=== PATIENT | male | born 1940 | race Caucasian/White ===

== ENCOUNTER 2019-03-09 06:35 | Inpatient (IN) ==
[2019-03-09] MEDS ORDERED: Ipratropium/Albuterol Neb 3 ML IH ONE (07:08)
[2019-03-09] MEDS ORDERED: 0.9 % Sodium Chloride 1,000 ML IVC ONE (07:08)
[2019-03-09] MEDS ORDERED: Aspirin 81 MG TAB.CHEW PO STA (07:37)
[2019-03-09 07:52] LABS: Basophils # 0.1 K/mcL (0.0-0.2); Basophils % 0.9 %; Eosinophils # 0.2 K/mcL (0.0-0.6); Eosinophils % 2.3 %; Hematocrit 32.2 % (37.5-50.1); Hemoglobin 10.6 g/dL (12.9-16.9); Immature Granulocytes % 0.6 % (0-4); Lymphocytes # 1.2 K/mcL (0.6-4.6); Lymphocytes % 14.4 %; Mean Corpuscular HGB Conc 32.9 g/dL (31.6-35.5); Mean Corpuscular Hemoglobin 30.7 pg (28.0-33.3); Mean Corpuscular Volume 93.3 fL (83.0-100.0); Mean Platelet Volume 11.5 fL (9.4-12.4); Monocytes # 0.7 K/mcL (0.0-1.3); Neutrophils # 6.4 K/mcL (1.6-8.9); Platelet Count 207 K/mcL (140-400); Red Blood Count 3.45 M/mcL (4.19-5.50); Red Cell Distribution Width 16.4 % (11.5-14.5); Segmented Neutrophils % 73.8 %; White Blood Count 8.6 K/mcL (4.3-11.1)
[2019-03-09 08:00] LABS: INR 1.1; Prothrombin Time 12.1 Seconds (9.4-12.1)
[2019-03-09] MEDS ORDERED: Isovue-370 500 ML BOTTLE IVP ONE (08:00)
[2019-03-09 08:25] LABS: BUN/Creatinine Ratio 20 (6-26); Blood Urea Nitrogen 28 mg/dL (8-23); Calcium 9.2 mg/dL (8.6-10.3); Carbon Dioxide 25 mEq/L (23-29); Chloride 108 mEq/L (98-107); Glucose 103 mg/dL (70-105); Osmolality,Calculated 300 (280-300); Potassium 4.4 mEq/L (3.5-5.1); Sodium 142 mEq/L (136-145); Troponin I 0.06 ng/mL (< 0.04); eGFR For African Americans > 60 (> 60); eGFR For Non-African Americans 50 (> 60)
[2019-03-09 08:48] LABS: ABG Base Excess -4 mEq/L (-2 to 3); ABG HCO3 20 mEq/L (21-27); ABG Oxygen Saturation 93 % (95-98); ABG PCO2 33 mmHg (35-45); ABG PO2 66 mmHg (85-104); ABG TCO2 21 mEq/L (20-26)
[2019-03-09] MEDS ORDERED: Azithromycin 500 MG in 0.9 % Sodium Chloride 250 ML IVPB ONE (08:55)
[2019-03-09] MEDS ORDERED: cefTRIAXone 1,000 MG in 0.9 % Sodium Chloride Mini Bag 100 ML IVPB ONE (08:55)
[2019-03-09] MEDS ORDERED: Furosemide 40 MG/4 ML VIAL IVP ONE (09:31)
[2019-03-09] MEDS ORDERED: Nitroglycerin 0.4 MG TAB.SUBL SL ONE (09:55)
[2019-03-09] MEDS: Nitroglycerin 25 MG/250 ML INFUS..BTL IVC SCH (10:08)
[2019-03-09] MEDS ORDERED: *HR* Heparin 5,000 UNIT/ML VIAL IVP PRN ×2 (10:19)
[2019-03-09] MEDS ORDERED: *HR* Heparin 5,000 UNIT/ML VIAL IVP ONE (10:19)
[2019-03-09] MEDS ORDERED: Naloxone 0.4 MG/ML INJ IVP PRN (10:25)
[2019-03-09] MEDS ORDERED: Ipratropium/Albuterol Neb 3 ML IH PRN (10:46)
[2019-03-09] MEDS: Heparin 25,000 UNIT/250 ML D5W 25,000 UNIT/250 ML IV.SOLN IVC SCH (11:44)
[2019-03-09] MEDS: *HR* Ticagrelor 90 MG TABLET PO SCH ×2 (12:35→20:06)
[2019-03-09 14:27] LABS: Hematocrit 30.8 % (37.5-50.1); Hemoglobin 10.1 g/dL (12.9-16.9); Mean Corpuscular HGB Conc 32.8 g/dL (31.6-35.5); Mean Corpuscular Hemoglobin 30.4 pg (28.0-33.3); Mean Corpuscular Volume 92.8 fL (83.0-100.0); Mean Platelet Volume 11.8 fL (9.4-12.4); Platelet Count 202 K/mcL (140-400); Red Blood Count 3.32 M/mcL (4.19-5.50); Red Cell Distribution Width 16.4 % (11.5-14.5); White Blood Count 11.1 K/mcL (4.3-11.1)
[2019-03-09 14:32] LABS: INR 1.2; Prothrombin Time 13.4 Seconds (9.4-12.1)
[2019-03-09] MEDS: Metoprolol XL (24 HR) Succ 25 MG TAB.ER.24H PO SCH (15:52)
[2019-03-09] MEDS: Furosemide 20 MG/2 ML VIAL IVP SCH (20:06)
[2019-03-09] MEDS ORDERED: Furosemide 40 MG in 0.9 % Sodium Chloride 50 ML IV SCH (21:00)
[2019-03-10 01:04] LABS: Basophils # 0.1 K/mcL (0.0-0.2); Eosinophils # 0.2 K/mcL (0.0-0.6); Hematocrit 30.3 % (37.5-50.1); Hemoglobin 10.2 g/dL (12.9-16.9); Immature Granulocytes % 0.5 % (0-4); Lymphocytes # 1.7 K/mcL (0.6-4.6); Lymphocytes % 17.1 %; Mean Corpuscular HGB Conc 33.7 g/dL (31.6-35.5); Mean Corpuscular Hemoglobin 30.4 pg (28.0-33.3); Mean Corpuscular Volume 90.2 fL (83.0-100.0); Mean Platelet Volume 11.5 fL (9.4-12.4); Monocytes % 9.4 %; Neutrophils # 7.1 K/mcL (1.6-8.9); Platelet Count 205 K/mcL (140-400); Red Blood Count 3.36 M/mcL (4.19-5.50); Red Cell Distribution Width 16.4 % (11.5-14.5); White Blood Count 10.1 K/mcL (4.3-11.1)
[2019-03-10 01:11] LABS: BUN/Creatinine Ratio 21 (6-26); Blood Urea Nitrogen 28 mg/dL (8-23); Calcium 8.8 mg/dL (8.6-10.3); Carbon Dioxide 22 mEq/L (23-29); Chloride 103 mEq/L (98-107); Glucose 103 mg/dL (70-105); Magnesium 1.9 mg/dL (1.6-2.6); Osmolality,Calculated 290 (280-300); Potassium 3.9 mEq/L (3.5-5.1); Sodium 137 mEq/L (136-145); eGFR For African Americans > 60 (> 60); eGFR For Non-African Americans 53 (> 60)
[2019-03-10 01:43] LABS: Thyroid Stimulating Hormone 2.127 mcIU/mL (0.340-5.600)
[2019-03-10 02:05] LABS: Troponin I 0.41 ng/mL (< 0.04)
[2019-03-10] MEDS: Metoprolol XL (24 HR) Succ 25 MG TAB.ER.24H PO SCH (07:46)
[2019-03-10] MEDS: Aspirin 81 MG TAB.CHEW PO SCH (07:46)
[2019-03-10] MEDS: *HR* Ticagrelor 90 MG TABLET PO SCH ×2 (07:46→20:26)
[2019-03-10] MEDS ORDERED: *HR* Amiodarone 200 MG TABLET PO SCH (09:00)
[2019-03-10] MEDS: Furosemide 20 MG/2 ML VIAL IVP SCH (09:24)
[2019-03-10] MEDS: Isosorbide MONOnitrate (24 HR) 30 MG TAB.ER.24H PO SCH (09:32)
[2019-03-10] MEDS: Heparin 25,000 UNIT/250 ML D5W 25,000 UNIT/250 ML IV.SOLN IVC SCH (13:51)
[2019-03-10] MEDS: Nitroglycerin 25 MG/250 ML INFUS..BTL IVC SCH (16:06)
[2019-03-11] MEDS: Isosorbide MONOnitrate (24 HR) 30 MG TAB.ER.24H PO SCH (07:59)
[2019-03-11] MEDS: Aspirin 81 MG TAB.CHEW PO SCH (07:59)
[2019-03-11] MEDS: *HR* Ticagrelor 90 MG TABLET PO SCH ×2 (07:59→20:52)
[2019-03-11] MEDS: Metoprolol XL (24 HR) Succ 25 MG TAB.ER.24H PO SCH (07:59)
[2019-03-11 09:46] LABS: BUN/Creatinine Ratio 26 (6-26); Blood Urea Nitrogen 34 mg/dL (8-23); Calcium 8.7 mg/dL (8.6-10.3); Carbon Dioxide 25 mEq/L (23-29); Chloride 103 mEq/L (98-107); Glucose 94 mg/dL (70-105); Osmolality,Calculated 291 (280-300); Potassium 3.8 mEq/L (3.5-5.1); Sodium 137 mEq/L (136-145); eGFR For African Americans > 60 (> 60); eGFR For Non-African Americans 53 (> 60)
[2019-03-11] MEDS: Heparin 25,000 UNIT/250 ML D5W 25,000 UNIT/250 ML IV.SOLN IVC SCH (15:29)
[2019-03-11] MEDS: Nicotine 14 MG PATCH.TD24 TD SCH (18:12)
[2019-03-12 02:46] LABS: Calcium 8.7 mg/dL (8.6-10.3); Potassium 4.1 mEq/L (3.5-5.1)
[2019-03-12] MEDS: Nicotine 14 MG PATCH.TD24 TD SCH (08:07)
[2019-03-12] MEDS: Metoprolol XL (24 HR) Succ 25 MG TAB.ER.24H PO SCH (08:07)
[2019-03-12] MEDS: Isosorbide MONOnitrate (24 HR) 30 MG TAB.ER.24H PO SCH (08:07)
[2019-03-12] MEDS: *HR* Ticagrelor 90 MG TABLET PO SCH ×2 (08:07→20:59)
[2019-03-12] MEDS: Aspirin 81 MG TAB.CHEW PO SCH (08:07)
[2019-03-12] MEDS ORDERED: 0.9 % Sodium Chloride 250 ML IVC ONE (08:17)
[2019-03-12] MEDS: 0.9 % Sodium Chloride 1,000 ML IVC SCH (12:33)
[2019-03-12] MEDS: Heparin 25,000 UNIT/250 ML D5W 25,000 UNIT/250 ML IV.SOLN IVC SCH (13:47)
[2019-03-12 13:50] LABS: BUN/Creatinine Ratio 25 (6-26); Blood Urea Nitrogen 32 mg/dL (8-23); Calcium 8.6 mg/dL (8.6-10.3); Carbon Dioxide 24 mEq/L (23-29); Chloride 106 mEq/L (98-107); Glucose 126 mg/dL (70-105); Osmolality,Calculated 294 (280-300); Potassium 3.8 mEq/L (3.5-5.1); Sodium 138 mEq/L (136-145); eGFR For African Americans > 60 (> 60); eGFR For Non-African Americans 55 (> 60)
[2019-03-13 01:22] LABS: % Iron Saturation 12 % (20-55); Iron 31 mcg/dL (65-175); Transferrin 179 mg/dL (203-362)
[2019-03-13 01:23] LABS: BUN/Creatinine Ratio 22 (6-26); Blood Urea Nitrogen 25 mg/dL (8-23); Calcium 8.3 mg/dL (8.6-10.3); Carbon Dioxide 21 mEq/L (23-29); Chloride 108 mEq/L (98-107); Glucose 91 mg/dL (70-105); Osmolality,Calculated 288 (280-300); Potassium 4.1 mEq/L (3.5-5.1); Sodium 137 mEq/L (136-145); eGFR For African Americans > 60 (> 60); eGFR For Non-African Americans > 60 (> 60)
[2019-03-13] MEDS: 0.9 % Sodium Chloride 1,000 ML IVC SCH (01:58)
[2019-03-13] MEDS ORDERED: Furosemide 20 MG/2 ML VIAL IVP STA (08:37)
[2019-03-13] MEDS: *HR* Ticagrelor 90 MG TABLET PO SCH ×2 (08:45→21:52)
[2019-03-13] MEDS: Nicotine 14 MG PATCH.TD24 TD SCH (08:45)
[2019-03-13] MEDS: Isosorbide MONOnitrate (24 HR) 30 MG TAB.ER.24H PO SCH (08:45)
[2019-03-13] MEDS: Metoprolol XL (24 HR) Succ 25 MG TAB.ER.24H PO SCH (08:45)
[2019-03-13] MEDS: Aspirin 81 MG TAB.CHEW PO SCH (08:48)
[2019-03-13] MEDS ORDERED: ISOVUE-370 200 ML INFUS..BTL ONE (12:35)
[2019-03-13] MEDS ORDERED: 0.9 % Sodium Chloride 2,000 ML ONE (12:35)
[2019-03-13] MEDS ORDERED: Heparin 1,000 UNITS/500 mL 500 ML ONE (12:35)
[2019-03-13] MEDS ORDERED: Nitroglycerin 1,000 MCG/10 ML VIAL IV ONE (12:35)
[2019-03-13] MEDS ORDERED: *HR* Heparin 10,000 UNIT/10 ML VIAL ONE (12:35)
[2019-03-13] MEDS ORDERED: *HR* FentaNYL (PF) 100 MCG/2 ML VIAL ONE (13:04)
[2019-03-13] MEDS ORDERED: *HR* Midazolam HCl 2 MG/2 ML VIAL ONE (13:04)
[2019-03-14 03:11] LABS: BUN/Creatinine Ratio 19 (6-26); Blood Urea Nitrogen 22 mg/dL (8-23); Calcium 8.7 mg/dL (8.6-10.3); Carbon Dioxide 21 mEq/L (23-29); Chloride 107 mEq/L (98-107); Glucose 84 mg/dL (70-105); Osmolality,Calculated 287 (280-300); Potassium 4.1 mEq/L (3.5-5.1); Sodium 137 mEq/L (136-145); eGFR For African Americans > 60 (> 60); eGFR For Non-African Americans > 60 (> 60)
[2019-03-14 07:26] VITALS: BP 119/62
[2019-03-14] MEDS: Aspirin 81 MG TAB.CHEW PO SCH (08:20)
[2019-03-14] MEDS: Isosorbide MONOnitrate (24 HR) 30 MG TAB.ER.24H PO SCH (08:20)
[2019-03-14] MEDS: *HR* Ticagrelor 90 MG TABLET PO SCH (08:20)
[2019-03-14] MEDS: Nicotine 14 MG PATCH.TD24 TD SCH (08:21)
[2019-03-14] MEDS ORDERED: Metoprolol XL (24 HR) Succ 50 MG TAB.ER.24H PO SCH (09:00)
== END 2019-03-14 14:19 | disposition home or self-care (01) | DRG 280 ==
LOC: CDU 06:35 → EMEROOARM 06:35 → SUATTDRO 09:51 → CDU 11:25 → 2NENU 17:44 → SUATTDRO 03-10 17:45
PROVIDERS: ADMIT Internal Medicine; ATTEND Family Medicine

== ENCOUNTER 2019-05-22 10:38 | Observation (INO) ==
[2019-05-22 11:23] LABS: Prothrombin Time 11.8 Seconds (9.4-12.1)
[2019-05-22 11:24] LABS: Basophils # 0.2 K/mcL (0.0-0.2); Basophils % 1.2 %; Eosinophils # 0.5 K/mcL (0.0-0.6); Eosinophils % 4.2 %; Hematocrit 31.3 % (37.5-50.1); Hemoglobin 9.6 g/dL (12.9-16.9); Immature Granulocytes % 0.6 % (0-4); Lymphocytes # 2.3 K/mcL (0.6-4.6); Lymphocytes % 18.7 %; Mean Corpuscular HGB Conc 30.7 g/dL (31.6-35.5); Mean Corpuscular Hemoglobin 26.2 pg (28.0-33.3); Mean Corpuscular Volume 85.3 fL (83.0-100.0); Monocytes % 8.3 %; Neutrophils # 8.4 K/mcL (1.6-8.9); Platelet Count 235 K/mcL (140-400); Red Blood Count 3.67 M/mcL (4.19-5.50); Red Cell Distribution Width 15.9 % (11.5-14.5); White Blood Count 12.5 K/mcL (4.3-11.1)
[2019-05-22 11:26] LABS: Activated Partial Thrombo Time 29.6 Seconds (26.0-36.0)
[2019-05-22 11:42] LABS: Alanine Aminotransferase 12 Units/L (7-52); Albumin/Globulin Ratio 1.4 (1.1-2.2); Alkaline Phosphatase 94 Units/L (34-104); Aspartate Amino Transferase 17 Units/L (13-39); Bilirubin,Total 0.6 mg/dL (0.3-1.0); Blood Urea Nitrogen 28 mg/dL (8-23); Calcium 9.2 mg/dL (8.6-10.3); Carbon Dioxide 24 mEq/L (23-29); Chloride 102 mEq/L (98-107); Globulin 2.9 g/dL (2.4-3.5); Glucose 102 mg/dL (70-105); Osmolality,Calculated 292 (280-300); Potassium 3.8 mEq/L (3.5-5.1); Sodium 138 mEq/L (136-145); Total Protein 6.9 g/dL (6.4-8.9); Troponin I < 0.03 ng/mL (< 0.04)
[2019-05-22 12:25] LABS: BUN/Creatinine Ratio 19 (6-26); eGFR For African Americans 56 (> 60); eGFR For Non-African Americans 46 (> 60)
[2019-05-22 12:37] LABS: Bilirubin,Urine Negative (Negative); Blood,Urine Negative (Negative); Clarity,Urine Clear (Clear); Color,Urine Yellow (Yellow); Glucose,Urine (UA) Normal (Normal); Ketones,Urine Negative (Negative); Leukocyte Esterase,Urine Negative (Negative); Nitrite,Urine Negative (Negative); PH,Urine 6.5 pH Units (5.0-8.0); Protein,Urine Negative (Neg-Trace); Specific Gravity,Urine 1.012 (1.010-1.025); Urobilinogen,Urine Normal (Normal)
[2019-05-22] MEDS ORDERED: Naloxone 0.4 MG/ML INJ IVP PRN (14:41)
[2019-05-22] MEDS ORDERED: 0.9 % Sodium Chloride 500 ML IVC SCH (15:00)
[2019-05-23 06:58] LABS: Basophils # 0.1 K/mcL (0.0-0.2); Basophils % 1.1 %; Eosinophils # 0.4 K/mcL (0.0-0.6); Eosinophils % 4.1 %; Hematocrit 27.9 % (37.5-50.1); Hemoglobin 8.6 g/dL (12.9-16.9); Immature Granulocytes % 0.3 % (0-4); Lymphocytes % 28.6 %; Mean Corpuscular HGB Conc 30.8 g/dL (31.6-35.5); Mean Corpuscular Hemoglobin 25.7 pg (28.0-33.3); Mean Corpuscular Volume 83.5 fL (83.0-100.0); Mean Platelet Volume 11.8 fL (9.4-12.4); Monocytes # 1.1 K/mcL (0.0-1.3); Monocytes % 10.7 %; Neutrophils # 5.8 K/mcL (1.6-8.9); Platelet Count 223 K/mcL (140-400); Red Blood Count 3.34 M/mcL (4.19-5.50); Red Cell Distribution Width 16.3 % (11.5-14.5); Segmented Neutrophils % 55.2 %; White Blood Count 10.5 K/mcL (4.3-11.1)
[2019-05-23 07:17] LABS: BUN/Creatinine Ratio 20 (6-26); Blood Urea Nitrogen 27 mg/dL (8-23); Calcium 8.4 mg/dL (8.6-10.3); Carbon Dioxide 23 mEq/L (23-29); Chloride 105 mEq/L (98-107); Glucose 86 mg/dL (70-105); Osmolality,Calculated 292 (280-300); Potassium 4.2 mEq/L (3.5-5.1); Sodium 139 mEq/L (136-145); eGFR For African Americans > 60 (> 60); eGFR For Non-African Americans 52 (> 60)
[2019-05-23 07:34] VITALS: BP 102/61
[2019-05-23] MEDS ORDERED: Isosorbide MONOnitrate (24 HR) 30 MG TAB.ER.24H PO SCH (09:00)
[2019-05-23] MEDS ORDERED: Nicotine 14 MG PATCH.TD24 TD SCH (09:00)
== END 2019-05-23 12:12 | disposition home or self-care (01) ==
LOC: EMEROOARM 10:38 → 2ANU 10:38
PROVIDERS: ADMIT Pharmacist; ATTEND Pharmacist

== ENCOUNTER 2020-04-15 05:03 | Inpatient (IN) ==
[2020-04-15] MEDS ORDERED: Aspirin 81 MG TAB.CHEW PO ONE (05:20)
[2020-04-15] MEDS ORDERED: *HR* FentaNYL (PF) 100 MCG/2 ML VIAL IVP ONE ×2 (05:20→06:44)
[2020-04-15 05:37] LABS: Basophils # 0.2 K/mcL (0.0-0.2); Basophils % 1.3 %; Eosinophils # 0.8 K/mcL (0.0-0.6); Eosinophils % 4.8 %; Hematocrit 33.1 % (37.5-50.1); Hemoglobin 10.3 g/dL (12.9-16.9); Immature Granulocytes % 0.4 % (0-4); Lymphocytes # 5.9 K/mcL (0.6-4.6); Lymphocytes % 35.3 %; Mean Corpuscular HGB Conc 31.1 g/dL (31.6-35.5); Mean Corpuscular Hemoglobin 28.9 pg (28.0-33.3); Mean Corpuscular Volume 92.7 fL (83.0-100.0); Mean Platelet Volume 10.8 fL (9.4-12.4); Monocytes # 1.5 K/mcL (0.0-1.3); Monocytes % 8.8 %; Neutrophils # 8.2 K/mcL (1.6-8.9); Platelet Count 403 K/mcL (140-400); Red Blood Count 3.57 M/mcL (4.19-5.50); Red Cell Distribution Width 15.7 % (11.5-14.5); Segmented Neutrophils % 49.4 %; White Blood Count 16.6 K/mcL (4.3-11.1)
[2020-04-15 05:44] LABS: INR 1.1; Prothrombin Time 12.8 Seconds (9.4-12.1)
[2020-04-15 05:48] LABS: Activated Partial Thrombo Time 27.3 Seconds (26.0-36.0)
[2020-04-15 05:52] LABS: BUN/Creatinine Ratio 24 (6-26); Blood Urea Nitrogen 24 mg/dL (8-23); Calcium 9.5 mg/dL (8.6-10.3); Carbon Dioxide 23 mEq/L (23-29); Chloride 109 mEq/L (98-107); Glucose 123 mg/dL (70-105); Osmolality,Calculated 297 (280-300); Potassium 3.8 mEq/L (3.5-5.1); Sodium 141 mEq/L (136-145); Troponin I 0.03 ng/mL (< 0.04); eGFR For African Americans > 60 (> 60); eGFR For Non-African Americans > 60 (> 60)
[2020-04-15] MEDS ORDERED: Vancomycin 1,250 MG/262.5 ML IV.SOLN IVPB ONE (06:07)
[2020-04-15] MEDS ORDERED: Meropenem 1,000 MG in 0.9 % Sodium Chloride Mini Bag 100 ML IVPB ONE (06:08)
[2020-04-15] MEDS ORDERED: *HR* Heparin 5,000 UNIT/ML VIAL IVP ONE (06:17)
[2020-04-15] MEDS ORDERED: *HR* Heparin 5,000 UNIT/ML VIAL IVP PRN ×2 (06:17)
[2020-04-15] MEDS ORDERED: Ondansetron 4 MG/2 ML VIAL IVP ONE (06:33)
[2020-04-15] MEDS: Heparin 25,000UNIT/250ML 1/2NS 25,000 UNIT/250 ML IV.SOLN IVC SCH (06:43)
[2020-04-15 06:58] LABS: Heparin anti-factor XA UFH < 0.04 IU/mL (0.30-0.70); INR 1.1; Prothrombin Time 13.1 Seconds (9.4-12.1)
[2020-04-15] MEDS ORDERED: Furosemide 40 MG/4 ML VIAL IVP ONE (07:15)
[2020-04-15] MEDS ORDERED: Metoprolol XL (24 HR) Succ 25 MG TAB.ER.24H PO SCH (07:17)
[2020-04-15] MEDS ORDERED: Naloxone 0.4 MG/ML INJ IVP PRN (07:40)
[2020-04-15] MEDS ORDERED: Ondansetron 4 MG/2 ML VIAL IVP PRN (07:40)
[2020-04-15 07:44] LABS: D-Dimer 2525 ng/mLFEU (0-500)
[2020-04-15] MEDS ORDERED: Isovue-370 500 ML BOTTLE IVP ONE ×2 (07:46→07:53)
[2020-04-15] MEDS ORDERED: Perflutren Lipid Microsphere 1.3 ML in 0.9 % Sodium Chloride 8.7 ML IVP PRN (10:00)
[2020-04-15] MEDS: Isosorbide MONOnitrate (24 HR) 30 MG TAB.ER.24H PO SCH (18:00)
[2020-04-16 04:14] LABS: Basophils # 0.2 K/mcL (0.0-0.2); Basophils % 1.5 %; Eosinophils # 0.3 K/mcL (0.0-0.6); Eosinophils % 2.9 %; Hematocrit 27.5 % (37.5-50.1); Immature Granulocytes % 0.5 % (0-4); Lymphocytes # 2.1 K/mcL (0.6-4.6); Lymphocytes % 20.9 %; Mean Corpuscular HGB Conc 31.6 g/dL (31.6-35.5); Mean Corpuscular Hemoglobin 28.4 pg (28.0-33.3); Mean Corpuscular Volume 89.9 fL (83.0-100.0); Mean Platelet Volume 10.8 fL (9.4-12.4); Monocytes % 9.6 %; Neutrophils # 6.6 K/mcL (1.6-8.9); Platelet Count 275 K/mcL (140-400); Red Blood Count 3.06 M/mcL (4.19-5.50); Red Cell Distribution Width 15.8 % (11.5-14.5); Segmented Neutrophils % 64.6 %; White Blood Count 10.2 K/mcL (4.3-11.1)
[2020-04-16 04:16] LABS: Hemoglobin 8.7 g/dL (12.9-16.9)
[2020-04-16 04:29] LABS: BUN/Creatinine Ratio 26 (6-26); Blood Urea Nitrogen 24 mg/dL (8-23); Calcium 8.7 mg/dL (8.6-10.3); Carbon Dioxide 27 mEq/L (23-29); Chloride 105 mEq/L (98-107); Glucose 98 mg/dL (70-105); Magnesium 1.9 mg/dL (1.6-2.6); Osmolality,Calculated 292 (280-300); Sodium 139 mEq/L (136-145); eGFR For African Americans > 60 (> 60); eGFR For Non-African Americans > 60 (> 60)
[2020-04-16 04:33] LABS: Troponin I 0.74 ng/mL (< 0.04)
[2020-04-16] MEDS: Aspirin Enteric Coated 81 MG Tablet PO SCH (08:34)
[2020-04-16] MEDS: Isosorbide MONOnitrate (24 HR) 30 MG TAB.ER.24H PO SCH (08:34)
[2020-04-16] MEDS: levoFLOXacin 750 MG/150 ML 750 MG/150 ML BAG IVPB SCH (08:41)
[2020-04-16] MEDS ORDERED: Furosemide 40 MG/4 ML VIAL IVP SCH ×3 (09:00→22:00)
[2020-04-16] MEDS ORDERED: Aspirin 81 MG TAB.CHEW PO SCH (09:00)
[2020-04-16] MEDS: Ranolazine 500 MG TAB.ER.12H PO SCH ×2 (15:48→21:40)
[2020-04-16 16:34] LABS: Hematocrit 27.4 % (37.5-50.1); Hemoglobin 8.8 g/dL (12.9-16.9)
[2020-04-16] MEDS ORDERED: Albumin Human 5% 12.5 GM/250 ML IV.SOLN IVC SCH (17:30)
[2020-04-16] MEDS: *HR* Heparin 5,000 UNIT/ML VIAL SQ SCH (18:14)
[2020-04-16 19:43] LABS: Bacteria,Urine Few per hpf (None-Few); Bilirubin,Urine Negative (Negative); Blood,Urine Large (Negative); Clarity,Urine Clear (Clear); Color,Urine Yellow (Yellow); Glucose,Urine (UA) Normal (Normal); Ketones,Urine Negative (Negative); Leukocyte Esterase,Urine Negative (Negative); Mucus,Urine Few per lpf (None-Few); Nitrite,Urine Negative (Negative); Protein,Urine 70 mg/dL (Neg-Trace); RBC,Urine TNTC per hpf (0-3); Urobilinogen,Urine Normal (Normal); WBC,Urine 0-3 per hpf (0-3)
[2020-04-17] MEDS: Heparin 25,000UNIT/250ML 1/2NS 25,000 UNIT/250 ML IV.SOLN IVC SCH (00:13)
[2020-04-17] MEDS: *HR* Heparin 5,000 UNIT/ML VIAL SQ SCH (05:53)
[2020-04-17 08:56] LABS: Hematocrit 27.3 % (37.5-50.1); Hemoglobin 8.6 g/dL (12.9-16.9)
[2020-04-17] MEDS ORDERED: lisinopriL 5 MG TABLET PO SCH (09:00)
[2020-04-17] MEDS ORDERED: Furosemide 20 MG/2 ML VIAL IVP SCH (09:00)
[2020-04-17 09:14] LABS: BUN/Creatinine Ratio 24 (6-26); Blood Urea Nitrogen 27 mg/dL (8-23); Calcium 8.6 mg/dL (8.6-10.3); Carbon Dioxide 26 mEq/L (23-29); Chloride 106 mEq/L (98-107); Glucose 83 mg/dL (70-105); Magnesium 1.9 mg/dL (1.6-2.6); Osmolality,Calculated 294 (280-300); Phosphorous 3.1 mg/dL (2.7-4.5); Sodium 140 mEq/L (136-145); eGFR For African Americans > 60 (> 60); eGFR For Non-African Americans > 60 (> 60)
[2020-04-17] MEDS: Isosorbide MONOnitrate (24 HR) 30 MG TAB.ER.24H PO SCH (09:17)
[2020-04-17] MEDS: Ranolazine 500 MG TAB.ER.12H PO SCH (09:25)
[2020-04-17] MEDS: Aspirin Enteric Coated 81 MG Tablet PO SCH (09:25)
[2020-04-17] MEDS: levoFLOXacin 750 MG/150 ML 750 MG/150 ML BAG IVPB SCH (09:26)
[2020-04-17 10:44] VITALS: BP 127/78
[2020-04-17] MEDS ORDERED: Furosemide 20 MG TABLET PO SCH (17:00)
[2020-04-19] MEDS ORDERED: levoFLOXacin 750 MG/150 ML 750 MG/150 ML BAG IVPB SCH (09:00)
== END 2020-04-17 14:36 | disposition home health service (06) | DRG 280 ==
LOC: EMEROOARM 05:03 → 3BNU 05:03 → SUATTDRO 08:34 → 3BNU 10:29
PROVIDERS: ADMIT Internal Medicine; ATTEND Internal Medicine